=== PATIENT | female | born 1940 | race Caucasian/White ===

== ENCOUNTER 2022-03-01 07:29 | Observation (INO) | payer MEDICARE, SELFPAY ==
[2022-03-01] VITALS (14 sets, daily range): BP systolic 115–168; BP diastolic 65–85; PULSE 55–81; RESP 12–18; TEMP 35.9–36.9; O2SAT 94–100; BMI 29.7
[2022-03-01] MEDS: Lactated Ringers 1,000 ML 15 ML IV (07:04)
[2022-03-01 07:11] LABS: Bedside Glucose 119 mg/dL (74-106)
--- NOTE | 2022-03-01 07:25 | OP.PCM_ITS ---
Problems Associated Problem List Diagnoses (1) Lumbar spondylosis: Report of Operation Date of Procedure: 03/01/22 Pre-Operative Diagnosis: 1. Lumbar spondylosis 2. Chronic back pain Post-Operative Diagnosis: 1. Lumbar spondylosis 2. Chronic back pain Surgery/Procedure Performed:: 1.T9-10 partial bilateral laminectomies 2. dorsal column stimulator paddle lead placement 3. subcutaneous placement of dorsal column stimulator generator 4. 1 hour of complex programming postoperatively Description of Surgical Findings:: The patient is an 81-year-old female with intractable back pain. The patient failed nonoperative treatments and opted for operative intervention understanding the risk to include but not limited to infection, bleeding, damage to nerves arteries and veins, possibility of continued pain, paralysis, need for additional surgery, hardware failure, pulmonary embolism, heart attack, risk of stroke or The patient was identified in the preoperative holding area. There she received preoperative IV antibiotics, clindamycin, and was transferred to the operative suite. Once in the operative suite after general endotracheal anesthesia was established the patient was transferred prone to the [facility] operating table. All the bony prominences were padded accordingly. The thoracolumbar spine was prepped and draped in sterile fashion. An incision was made over the thoracolumbar spine centered over the T9-10 interlaminar space and taken down to the thoracic fascia. The fascia was divided and subperiosteal dissection was taken down to the level of the bilateral T9-10 facet joints. Partial bilateral laminectomies were performed at the T9-10 interspace. At this point a paddle lead was placed spanning from the top of T8 inferiorly. This lead was then anchored to the fascia using standard anchors with silk suture. A second incision was made over the right posterior iliolumbar region as a battery pocket. Wires from the stimulator were then passed subcutaneously with a passing device to the battery pocket and connected to a new generator battery. Both incisions were then thoroughly irrigated and closed with #1 Vicryl for the fascia, 2-0 Vicryl for subcutaneous and 2-0 nylon for the skin. A sterile dressing was applied with 4 x 4's ABD and tape. Sponge instrument needle counts were correct at the end of the case. Neurophysiologic monitoring was maintained at baseline throughout the duration of the case. The patient was extubated taken to the PACU without incident. Then 1 hour was spent with complex programming with the patient recovered. Surgeon: Theodore Milner Type of Anesthesia: General Estimated Blood Loss (mL): 10 cc Fluids Replaced: 700 cc Grafts/Implants Used: [employer] Complications None Admit VTE Documentation VTE Present on Admission: No
--- NOTE | 2022-03-01 07:25 | PCM.PN.ORT ---
Subjective Subjective The patient was seen and examined postoperatively in the PACU. She is lying in bed resting comfortably. Her pain is controlled. She has no complaints occluding numbness tingling or weakness Objective Data Objective Data Vital Signs: Vital Signs Temp Pulse Resp BP Pulse Ox O2 Del Method 98.1 F 81 18 133/74 H 99 Room Air 03/01/22 06:42 03/01/22 06:42 03/01/22 06:42 03/01/22 06:42 03/01/22 06:42 03/01/22 06:42 Oxygen Delivery Method Room Air Weight: 152 lb Body Mass Index (BMI) 29.7 Lab / Micro Data Labs: Laboratory Results - last 24 hr 03/01/22 06:29: POC Glucose 119 H Physical Exam Const alert, oriented x3 and no apparent distress General Appearance: cooperative, comfortable and well kempt HEENT normocephalic and head/scalp atraumatic Eyes EOMs intact bilaterally and conjunctivae normal Neck full ROM General: normal visual inspection Chest inspection of chest normal and palpation of chest normal Resp normal respiratory effort and normal air movement Cardio regular rate, regular rhythm and peripheral pulses 2+ throughout GI soft to palpation, non-tender and non-distended Back/Spine Back/Spine Narrative: Dressing clean dry and intact Cervical Spine: cervical ROM normal Thoracic Spine / Upper Back: normal to inspection Lumbar Spine / Lower Back: normal to inspection Extremity normal to inspection, full ROM, normal capillary refill, no clubbing, cyanosis or edema and no calf tenderness Skin no rashes or lesions noted General Skin Exam: no breakdown Neuro oriented x3, CN's II-XII intact bilaterally, moves all extremities, no focal motor deficits, no sensory deficits noted and deep tendon reflexes 2+ bilaterally Motor Exam: strength 5/5 throughout and muscle tone normal throughout Assessment & Plan Assessment/Plan (1) Lumbar spondylosis: PLAN: Okay to admit to floor for observation See orders Discharge planning, home tomorrow
--- NOTE | 2022-03-01 07:25 | PCM.DC.SUM ---
Providers Primary Care Physician: Dr. Vj Hunter MD Reason For Visit: THORASCIC 9-10 LAMINECTOMY,SPINAL CORD STIM IMPLAN Medications at Discharge Home Medications ascorbic acid (vitamin C) 2,000 mg tablet,extended release 2,000 mg PO DAILY supplement 02/22/22 cholecalciferol (vitamin D3) 125 mcg (5,000 unit) tablet (Vitamin D3) 125 mcg PO DAILY SUPPLEMENT 02/22/22 cinnamon bark 500 mg capsule (Cinnamon) 1,000 mg PO DAILY SUPPLEMENT 02/22/22 ginkgo biloba 60 mg capsule 60 mg PO BID SUPPLEMENT 02/22/22 losartan 50 mg-hydrochlorothiazide 12.5 mg tablet 1 tab PO DAILY HTN 02/22/22 magnesium 250 mg tablet 250 mg PO DAILY SUPPLEMENT 02/22/22 metformin 500 mg tablet 500 mg PO DAILY BLD GLUCOSE 02/22/22 metoprolol tartrate 50 mg tablet 50 mg PO DAILY HTN 02/22/22 milk thistle 175 mg capsule 175 mg PO BID SUPPELEMENT 02/22/22 multivitamin 1 cap PO DAILY SUPPLEMENT 02/22/22 omega-3 fatty acids 500 mg PO DAILY SUPPELEMENT 02/22/22 omeprazole 40 mg capsule,delayed release 40 mg PO DAILY GERD 02/22/22 potassium 99 mg tablet 99 mg PO DAILY SUPPLEMENT 02/22/22 pravastatin 40 mg tablet 40 mg PO DAILY HLD 02/22/22 psyllium seed (sugar) oral powder (Metamucil (sugar) oral powder) 1 tbsp PO DAILY SUPPLEMENT 02/22/22 vitamin B complex 1 cap PO DAILY SUPPLEMENT 02/22/22 vitamin E 200 unit capsule 200 unit PO DAILY SUPPLEMENT 02/22/22 hydrocodone-acetaminophen 5-325mg 5mg-325mg 1 tab PO Q6H 7 days #28 tabs 03/01/22 Hospital Course Operations - (T9-10 partial bilateral laminectomies, implantation of permanent spinal cord stimulator lead and generator) Summary of Care Provided Minutes Spent on Discharge: 15 Hospital Course: The patient is an 81-year-old female who underwent implantation of a permanent spinal cord stimulator lead and generator on 03/01/2022. She was subsequently admitted for observation. She progressed well. Her pain was controlled and she was mobilizing well. The hospitalist was consulted for medical management. No significant medical issues were reported. She was subsequently discharged home on 03/02/2022 to follow-up with Dr. Milner in 3 weeks Physical Exam Const alert, oriented x3 and no apparent distress General Appearance: cooperative, comfortable and well kempt HEENT normocephalic and head/scalp atraumatic Eyes EOMs intact bilaterally and conjunctivae normal Neck full ROM General: normal visual inspection Chest inspection of chest normal and palpation of chest normal Resp normal respiratory effort and normal air movement Cardio regular rate and peripheral pulses 2+ throughout GI soft to palpation, non-tender and non-distended Back/Spine Back/Spine Narrative: Dressing clean dry and intact. Incisions well approximated with interrupted sutures in place. No tenderness erythema drainage or fluctuance Cervical Spine: cervical ROM normal Thoracic Spine / Upper Back: normal to inspection Lumbar Spine / Lower Back: normal to inspection Extremity normal to inspection, full ROM, normal capillary refill, no joint enlargement, no clubbing, cyanosis or edema, no calf tenderness and no pedal edema Skin no rashes or lesions noted General Skin Exam: no breakdown Neuro oriented x3, CN's II-XII intact bilaterally, moves all extremities, no focal motor deficits, no sensory deficits noted and deep tendon reflexes 2+ bilaterally Motor Exam: strength 5/5 throughout and muscle tone normal throughout Weight / BMI Weight Weight: 152 lb Body Mass Index (BMI) 29.7 ABG / Lab / Microbiology Data Laboratory: Laboratory Results - last 24 hr 03/01/22 06:29: POC Glucose 119 H D/C Instructions Discharge Diet: No restrictions Weight Bearing Status: Full weight bearing Lifting Restricted to (Lbs): 5 Additional Activity Instructions: No repetitive bending, twisting, or lifting greater than 5 pounds Call your doctor if your incision/area has: Continuous Slow Oozing, Sudden Increased Bleeding, Increased Pain/ Swelling, Increased Redness, Foul Smelling Discharge and Swelling at the incision site Call your doctor if you observe: Fever of 101 or Higher, Coldness, Increased Pain, Numbness or Tingling, Change in Color, Inability to urinate, Inability to have a bowel movement, Using more than 1 pad per hour, Shortness of breath, Dizziness, Fainting spells, Swelling in the ankles, Chest pain, Prolonged hiccupping, Increased palpitations (irregular heartbeat), Calf discomfort and Uncontrolled pain Cleanse incision/area with: Do not get Incision Wet and Keep Dressing Clean & Dry Additional Dressing/Incision Instructions: Change dressings daily with iodine, gauze and tape. [place] dressings to shower Additional Instructions: 1. During your procedure, you received sedation through your IV. Please follow these instructions for the next 24 hours: Do not drive a motor vehicle, do not drink any alcoholic beverages, and do not sign any legal documents or make personal or business decisions. A responsible adult should stay with you at least 6 hours after the procedure. 2. Keep your surgical site/incision clean and the dressing dry and intact. Change dressings daily you may use an ice pack at the surgical site to reduce any swelling or discomfort. 3. Monitor the incision site for any signs or symptoms of infection. Watch for redness, excessive swelling or drainage, or continued pain at the incision site after 3 days. Contact your physician immediately for a fever, chills or a temperature of 101.5? F or greater. 4. Take your medication exactly as prescribed by your physician. Do not attempt to wean yourself off any of your medications even though your pain is improving. This process needs to be carefully monitored by your doctor. Take any antibiotics prescribed exactly as directed and until they are gone. 5. Avoid stretching, bending, pulling, twisting or any sudden movements. Do not bend or twist at the waist. Do not raise your arms above your head 7. Do not operate a motor vehicle, equipment or a power tool while taking pain medication 8. Do not have any manipulation done by a chiropractor or any other physician without first consulting with the physician who placed your spinal cord stimulator. 9. Without movement, you may note changes in the intensity of the stimulator. For example, you may notice a different stimulation when you are standing than when you are sitting or lying down. This is normal the first few weeks following the implant and will stabilize over time. 10. Please contact our office if you are even scheduled for a CT scan or an MRI. 11. Please call us if you have any questions, problems or concerns. Please Follow Up With: Theodore Milner DO When: 3 weeks Meaningful Use Info Meaningful Use Diagnoses (Choose all that apply): None applicable Discharge Plan Admission Attending Provider: Theodore Milner Primary Care Provider: Vj Hunter Instructions Additional Instructions / Restrictions: 1. During your procedure, you received sedation through your IV. Please follow these instructions for the next 24 hours: Do not drive a motor vehicle, do not drink any alcoholic beverages, and do not sign any legal documents or make personal or business decisions. A responsible adult should stay with you at least 6 hours after the procedure. 2. Keep your surgical site/incision clean and the dressing dry and intact. You may sponge bathe, but no showering or sitting in a bathtub during your trial or for one week after the permanent implant. You may use an ice pack at the surgical site to reduce any swelling or discomfort. 3. Monitor the incision site for any signs or symptoms of infection. Watch for redness, excessive swelling or drainage, or continued pain at the incision site after 3 days. Contact your physician immediately for a fever, chills or a temperature of 101.5? F or greater. 4. Take your medication exactly as prescribed by your physician. Do not attempt to wean yourself off any of your medications even though your pain is improving. This process needs to be carefully monitored by your doctor. Take any antibiotics prescribed exactly as directed and until they are gone. 5. Avoid stretching, bending, pulling, twisting or any sudden movements. Do not bend or twist at the waist. Do not raise your arms above your head; however, you may brush your hair or scratch your head, but nothing higher than that. Any movements higher than that could cause your electrode wires to move from their current position. No not lie on your stomach. Do not bend at the waist to put your shoes on; you must lift your legs up to do this. 6. No lifting greater than 5 pounds. A gallon of milk weighs more than 5 pounds, so you may not lift this. Try to be careful. Any falls could dislodge the leads. 7. Do not operate a motor vehicle, equipment or a power tool while your stimulator is on. If you need to use any equipment, you must turn your stimulator off first. As a passenger in a motor vehicle, you may use your stimulator. 8. Do not have any manipulation done by a chiropractor or any other physician without first consulting with the physician who placed your spinal cord stimulator. 9. Without movement, you may note changes in the intensity of the stimulator. For example, you may notice a different stimulation when you are standing than when you are sitting or lying down. This is normal the first few weeks following the implant and will stabilize over time. 10. Please contact our office if you are even scheduled for a CT scan or an MRI. 11. Please call us if you have any questions, problems or concerns. Discharge Orders/Prescriptions Prescriptions: New hydrocodone-acetaminophen 5-325 mg tablet 1 tab PO Q6H 7 Days Qty: 28 0RF Continued metformin 500 mg Tablet 500 mg PO DAILY vitamin E 200 unit Capsule 200 unit PO DAILY ascorbic acid (vitamin C) 2,000 mg Tablet Extended Release 2,000 mg PO DAILY pravastatin 40 mg Tablet 40 mg PO DAILY omeprazole 40 mg Capsule,Delayed Release(Dr/Ec) 40 mg PO DAILY potassium 99 mg Tablet 99 mg PO DAILY metoprolol tartrate 50 mg Tablet 50 mg PO DAILY magnesium 250 mg Tablet 250 mg PO DAILY losartan-hydrochlorothiazide 50-12.5 mg Tablet 1 tab PO DAILY multivitamin Capsule 1 cap PO DAILY ginkgo biloba 60 mg Capsule 60 mg PO BID Rx Instructions: give with meal/snack vitamin B complex Capsule 1 cap PO DAILY omega-3 fatty acids Capsule 500 mg PO DAILY cinnamon bark [Cinnamon] 500 mg Capsule 1,000 mg PO DAILY milk thistle 175 mg Capsule 175 mg PO BID Rx Instructions: give with meal/snack cholecalciferol (vitamin D3) [Vitamin D3] 125 mcg (5,000 unit) Tablet 125 mcg PO DAILY Metamucil (sugar) Powder 1 tbsp PO DAILY Discontinued aspirin [Aspir-81] 81 mg Tablet,Delayed Release (Dr/Ec) 81 mg PO DAILY Referrals / Follow Up: Vj Hunter MD [Primary Care Provider] - Theodore Milner DO [Med Staff - Active Staff] - Disposition Disposition (needs filled in before D/C Order can be placed): Home, Self Care
[2022-03-01] MEDS: Clindamycin in 0.9% Sod Chlor 600 MG/50 ML BAG 100 MG IV (07:28)
--- NOTE | 2022-03-01 07:57 | RAD_ITS ---
EXAM: XR SPINE, 1 VIEW CLINICAL INDICATION: T9-10 LAMINECTOMY, SPINAL CORD STIM TECHNIQUE: Single view of the spine. This report was created using [employer] report generation technology. COMPARISON: None. FINDINGS: VERTEBRAE: AP fluoroscopic digital spot radiograph showing radiopaque wire entering the thoracolumbar junction and terminating at the T8 superior endplate level. Preserved vertebral body height. No fracture. Preservation of the normal spine curvature. No significant facet arthropathy. DISC SPACES: Unremarkable. Disc spaces are maintained. SOFT TISSUES: Unremarkable. RAD/Spine 1 View Any Level IMPRESSION: Normal intraoperative digital spot radiograph in the placement of spinal cord stimulator electrodes in the lower thoracic spine and terminating at the T8 superior endplate level. Electronically Signed: Shaun Miller MD at 9:51 EST ,
[2022-03-01] MEDS: THROMBIN (RECOMBINANT) 20,000 UNIT VIAL 20000 UNIT TOPICAL (08:18)
[2022-03-01] MEDS: Bupivacaine 0.25% 30 ML Vial (09:07)
[2022-03-01 11:35] LABS: Bedside Glucose 96 mg/dL (74-106)
[2022-03-01] MEDS: Lactated Ringers 1,000 ML 100 ML IV (14:17)
--- NOTE | 2022-03-01 14:33 | PN.HOSP_ITS ---
Subjective Subjective MARCELLA DORSEY is a 81 F who presented to [facility] on 03/01/2022 for elective dorsal column stimulator lead and generator placement and a T9-T11 partial bilateral laminectomy after suffering years of low back pain. Evidently a temporary device was placed on 12/19/2021 and she had good benefit so a permanent device was placed. The patient went through surgery and tolerated well. At the time my evaluation she was experiencing minimal pain and only reported being cold. She was hoping to be able to go home tomorrow. She denied any nausea or vomiting and indicated she was hungry. Objective Data Objective Data Vital Signs: Vital Signs Temp Pulse Resp BP Pulse Ox O2 Del Method O2 Flow Rate 97.6 F L 61 16 135/78 H 99 Room Air 4 03/01/22 12:53 03/01/22 13:29 03/01/22 12:53 03/01/22 12:53 03/01/22 12:53 03/01/22 12:53 03/01/22 09:45 Oxygen Flow Rate (L/min) 4 Oxygen Delivery Method Room Air Weight: 68.946 kg Body Mass Index (BMI) 29.7 Intake & Output: Intake and Output for Last 24 Hours 02/27/22 02/28/22 03/01/22 23:59 23:59 23:59 Intake Total 50 / 50 Balance 50 / 50 Lab / Micro Data Labs: Laboratory Results - last 24 hr 03/01/22 06:29: POC Glucose 119 H 03/01/22 11:14: POC Glucose 96 Radiography Diagnostic Testing: Radiology Impression Spine X-Ray 03/01/22 07:57 IMPRESSION: Normal intraoperative digital spot radiograph in the placement of spinal cord stimulator electrodes in the lower thoracic spine and terminating at the T8 superior endplate level. Electronically Signed: Shaun Miller MD at 9:51 EST , Physical Exam Const alert, oriented x3, no apparent distress, healthy appearing and well nourished Constitutional Narrative: Elderly white female lying in left side-lying in bed, appears comfortable nontoxic, at bedside HEENT head/scalp atraumatic and moist oral mucous membranes HEENT Narrative: Dentures in place, Mallampati 2, no thrush Head and Scalp: normocephalic Resp normal respiratory effort, no retractions, no use of accessory muscles and clear to auscultation bilaterally Auscultation: Negative for crackles, rales, rhonchi or wheezes Cardio regular rate, regular rhythm, S1 normal heart sound, S2 normal heart sound, no murmurs, no rub, no gallops and no clicks GI normal to inspection, nondistended, normoactive bowel sounds, soft to palpation and non-tender Extremity no clubbing, cyanosis or edema Extremity Narrative: 2+ pulses Neuro oriented x3, moves all extremities and no focal motor deficits Speech: speech normal Psych affect normal Psych Narrative: Very pleasant and appropriately interactive Assessment & Plan Assessment/Plan (1) Lumbar spondylosis: PLAN: Plan Spinal spondylosis -Postop day 0 T9-11 partial bilateral laminectomy as well as dorsal column stimulator paddle lead placement and subcutaneous placement of dorsal columns st imulator generator -Pain management per primary service -P.o. diet per primary service -As needed bowel regimen -Therapy services per primary service DM-2 -Hold home metformin -Sliding scale insulin -Accu-Cheks Hypertension -Continue home losartan and hydrochlorothiazide -Continue home metoprolol Hyperlipidemia Continue home pravastatin GERD -Continue home PPI DVT prophylaxis -Per primary service History of tobacco abuse -Remote -Continue to recommend ongoing cessation Charges/Coding Visit Charges OBSV E&M: 78087 Subsequent observation care L2
[2022-03-01] MEDS: Acetaminophen 500 MG Tablet 1000 MG PO ×2 (14:55→21:01)
[2022-03-01] MEDS: Pantoprazole Sodium 40 MG Tablet PO (14:55)
[2022-03-01] MEDS: Ensure Surgery 237 ML LIQUID PO (17:13)
[2022-03-01] MEDS: Insulin Lispro 100 UNIT/ML INSULN.PEN SC (17:17)
[2022-03-01 17:35] LABS: Bedside Glucose 154 mg/dL (74-106)
[2022-03-02] VITALS (7 sets, daily range): BP systolic 115–157; BP diastolic 65–77; PULSE 71–79; RESP 16–18; TEMP 36.6–36.8; O2SAT 94–95; BMI 29.7
[2022-03-02] MEDS: Lactated Ringers 1,000 ML 100 ML IV (00:25)
[2022-03-02 06:11] LABS: Absolute Lymphocyte Count 1.47 X10^3/uL (0.83-4.51); Absolute Neutrophil Count 8.6 X10^3/uL (2.0-7.7); Basophil# 0.04 X10^3/uL; Basophil% 0.3 % (0-1); Eosinophil# 0.08 X10^3/uL; Eosinophils% 0.7 % (0-5); Hematocrit 35.1 % (37-47); Hemoglobin 11.3 g/dL (12.0-15.0); Lymphocyte # 1.47 X10^3/ul (0.83-4.51); Lymphocyte % 12.7 % (19-41); Mean Corp Hgb Conc 32.2 g/dL (32-36); Mean Corpuscular Hgb 30.1 pg (27.0-32.0); Mean Corpuscular Volume 93.6 fL (81-99); Mean Platelet Vol. 9.8 fl (6.2-12.0); Monocyte# 1.35 X10^3/uL; Monocyte% 11.6 % (0-10); NRBC Flagged by Analyzer 0 % (0-5); Neutrophil # 8.57 X10^3/uL (2.7-7.7); Platelet Count 233 K/mm3 (150-450); RBC Distribution Width CV 14.6 % (11.6-14.6); RBC Distribution Width SD 49.4 fl (35.1-43.9); Red Blood Count 3.75 M/mm3 (4.2-5.4); White Blood Count 11.6 K/mm3 (4.4-11.0)
[2022-03-02] MEDS: Insulin Lispro 100 UNIT/ML INSULN.PEN SC (06:29)
[2022-03-02] MEDS: Acetaminophen 500 MG Tablet 1000 MG PO (06:30)
[2022-03-02 06:56] LABS: Bedside Glucose 160 mg/dL (74-106)
[2022-03-02] MEDS: Cholecalciferol (Vit D3) 125 MCG CAPSULE (5,000 UNITS) PO (09:20)
[2022-03-02] MEDS: Ascorbic Acid 500 MG Tablet 2000 MG PO (09:20)
[2022-03-02] MEDS: Metoprolol Tartrate 50 MG Tablet PO (09:21)
[2022-03-02] MEDS: Pantoprazole Sodium 40 MG Tablet PO (09:21)
[2022-03-02] MEDS: Pravastatin 40 MG Tablet PO (09:21)
[2022-03-02] MEDS: hydroCHLOROthiazide 25 MG Tablet 12.5 MG PO (09:21)
[2022-03-02] MEDS: Vitamin E 400 UNITS Capsule PO (09:21)
[2022-03-02] MEDS: Magnesium Chloride 64 MG Delay Rel.Tablet 128 MG PO (09:22)
[2022-03-02] MEDS: Omega-3 Acid Ethyl Esters 1 GM Capsule PO (09:22)
[2022-03-02] MEDS: Vitamin B Comp W-C Capsule 1 CAP PO (09:22)
[2022-03-02] MEDS: Losartan Potassium 50 MG Tablet PO (09:22)
[2022-03-02] MEDS: Multivitamins,Therapeutic Tablet 1 TABLET PO (09:22)
[2022-03-02] MEDS: Psyllium 1 PACKET PO (09:23)
[2022-03-02] MEDS: Ensure Surgery 237 ML LIQUID PO (09:28)
[2022-03-02] MEDS: oxyCODONE 5 MG Tablet PO (09:52)
--- NOTE | 2022-03-02 09:55 | CASEMGMT ---
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 ULISES URBAN introduced self and role at [facility]. Pt voices understanding and consents to assessment at this time. Pt standing @ edge of bed in no distress at this time. @ bedside. Pt is A/O at this time and answers all questions appropriately. Care providers, pharmacy, and demographics verified/updated at this time. PCP: Dr Hunter Specialists:Dr Milner-deja Preferred Pharmacy: [facility] Insurance: [employer] [facility] Prescription Benefit: Yes LNOK: Jax Living Arrangements: Lives w/ in one-story home w/basement. FFSU. 2 steps to enter home. Independent. able to assist if needed. Transportation: Pt and both drive. DME: States has the following DME: grab bars, walker Pt states no need for further DME at this time. HHC/SNF: No hx of either. No needs identified. Pt wishes to return home and states have no home-going needs or concerns. Explained hospitalization will be paid per her insurance policy for Outpatient billing and condition will continue to be evaluated for Inpt necessity. Also let pt know that [facility] sends paper in the billing packet with their phone number if questions arise. Discussed Pharmacy section of [facility] form and self administered medication guideline. Pt verbalizes understanding and does not have further questions. Form signed, copy made and placed in chart, and original given to pt. PLAN: Home w/spousal support and discharge plans in place. Janeth FELIZ RN, CM
--- NOTE | 2022-03-02 12:17 | PCM.PN.HOSP ---
Subjective Subjective Patient reports that she feels like she get hit by a truck. No significant issues overnight other than poor sleep and back pain. Patient indicates that the plan is for her to go home today Objective Data Objective Data Vital Signs: Vital Signs Temp Pulse Resp BP Pulse Ox O2 Del Method O2 Flow Rate 97.9 F 78 18 157/77 H 95 Room Air 4 03/02/22 08:18 03/02/22 09:21 03/02/22 08:18 03/02/22 09:21 03/02/22 08:18 03/02/22 08:18 03/02/22 08:18 Oxygen Flow Rate (L/min) 4 Oxygen Delivery Method Room Air Weight: 68.946 kg Body Mass Index (BMI) 29.7 Intake & Output: Intake and Output for Last 24 Hours 02/28/22 03/01/22 03/02/22 23:59 23:59 23:59 Intake Total 400 / 400 2166.49 / 2166.49 Balance 400 / 400 2166.49 / 2166.49 Lab / Micro Data Result Diagrams: 03/02/22 05:40 Labs: Laboratory Results - last 24 hr 03/01/22 17:12: POC Glucose 154 H 03/02/22 05:40: WBC 11.6 H, RBC 3.75 L, Hgb 11.3 L, Hct 35.1 L, MCV 93.6, MCH 30.1, MCHC 32.2, RDW Std Deviation 49.4 H, RDW Coeff of Mo 14.6, Plt Count 233, MPV 9.8, Immature Gran % (Auto) 0.700, Neut % (Auto) 74.0 H, Lymph % (Auto) 12.7 L, [place] % (Auto) 11.6 H, Eos % (Auto) 0.7, Baso % (Auto) 0.3, Absolute Neuts (auto) 8.6 H, Absolute Lymphs (auto) 1.47, Nucleated RBC % 0 03/02/22 06:28: POC Glucose 160 H Physical Exam Const alert, oriented x3, no apparent distress, healthy appearing and well nourished Constitutional Narrative: Elderly white female lying sitting up in bed eating breakfast, appears comfortable nontoxic, at bedside Resp Auscultation: Negative for crackles, rales, rhonchi or wheezes Assessment & Plan Assessment/Plan (1) Lumbar spondylosis: PLAN: Plan Spinal spondylosis -Postop day 1 T9-11 partial bilateral laminectomy as well as dorsal column stimulator paddle lead placement and subcutaneous placement of dorsal columns stimulator generator -Pain management per primary service -P.o. diet per primary service -As needed bowel regimen -Therapy services per primary service DM-2 -Hold home metformin and restart at discharge -Sliding scale insulin -Accu-Cheks Hypertension -Continue home losartan and hydrochlorothiazide -Continue home metoprolol Hyperlipidemia Continue home pravastatin GERD -Continue home PPI DVT prophylaxis -Per primary service History of tobacco abuse -Remote -Continue to recommend ongoing cessation Disposition -Okay to discharge from a medical standpoint Charges/Coding Visit Charges OBSV E&M: 50804 Initial observation care L1
== END 2022-03-02 10:09 | disposition home or self-care (01) ==
LOC: SDC 12:15 → MS3 12:15
PROVIDERS: Internal Medicine; Admitting Provider Orthopaedic Surgery; PCP Internal Medicine Infectious Disease; Referring Provider Internal Medicine Infectious Disease; Visit Provider Orthopaedic Surgery
PROC: (CPT 63655; principal; 2022-03-01 07:00)
DX: M48.061 Spinal stenosis, lumbar region without neurogenic claudication (principal); M46.1 Sacroiliitis, not elsewhere classified; E11.9 Type 2 diabetes mellitus without complications; G89.29 Other chronic pain; I10 Essential (primary) hypertension; E78.00 Pure hypercholesterolemia, unspecified; Z79.899 Other long term (current) drug therapy; Z79.84 Long term (current) use of oral hypoglycemic drugs; Z87.891 Personal history of nicotine dependence; M47.26 Other spondylosis with radiculopathy, lumbar region; M51.36 Other intervertebral disc degeneration, lumbar region; M41.86 Other forms of scoliosis, lumbar region; M43.16 Spondylolisthesis, lumbar region; K21.9 Gastro-esophageal reflux disease without esophagitis
CPT/HCPCS: 63685; 63655; 36415; 72020; 76000; 82962; 85025; 96360; 96361; 97162; 99218; 99251; C1820; J7120; G0378; G0463